=== PATIENT | male | born 1950 | race Caucasian/White ===

== ENCOUNTER 2020-08-14 14:56 | Outpatient (CLI) | payer MEDICARE, OTHER | END 2020-08-14 14:57 | disposition home or self-care (01) | LOC: CSHRAD 14:56 | PROVIDERS: ATTEND Internal Medicine Cardiovascular Disease | DX: Z79.899 Other long term (current) drug therapy (principal); Z13.83 Encounter for screening for respiratory disorder NEC; J90 Pleural effusion, not elsewhere classified | CPT/HCPCS: 71046 ==

== ENCOUNTER 2020-10-24 15:26 | Emergency (ER) | payer MEDICARE, OTHER ==
[2020-10-24] MEDS ORDERED: predniSONE 20 MG TAB ONE ×2 (17:35→17:40)
== END 2020-10-24 17:51 | disposition home or self-care (01) ==
LOC: CSHERS 15:26
DX: J18.9 Pneumonia, unspecified organism (principal); I25.2 Old myocardial infarction; E11.9 Type 2 diabetes mellitus without complications; E78.5 Hyperlipidemia, unspecified; E78.00 Pure hypercholesterolemia, unspecified; I10 Essential (primary) hypertension; Z79.4 Long term (current) use of insulin; Z79.899 Other long term (current) drug therapy
CPT/HCPCS: 71046; J7512

== ENCOUNTER 2020-10-31 19:14 | Emergency (ER) | payer MEDICARE, OTHER ==
[2020-10-31] MEDS ORDERED: Famotidine/PF 20 mg/2ml Vial ONE (19:50)
== END 2020-10-31 21:35 | disposition home or self-care (01) ==
LOC: CSHERS 19:14
DX: T78.1XXA Other adverse food reactions, not elsewhere classified, initial encounter (principal); L50.0 Allergic urticaria; I25.2 Old myocardial infarction; E78.5 Hyperlipidemia, unspecified; E78.00 Pure hypercholesterolemia, unspecified; E11.9 Type 2 diabetes mellitus without complications; I10 Essential (primary) hypertension; Z79.4 Long term (current) use of insulin; Z79.82 Long term (current) use of aspirin; Z79.899 Other long term (current) drug therapy
CPT/HCPCS: 96374; S0028

== ENCOUNTER 2021-05-02 23:03 | Inpatient (IN) | payer MEDICARE, OTHER ==
[2021-05-02 23:40] LABS: #Basophils 0.1 10x3/uL (0.0-0.2); #Eosinphils 0.2 10x3/uL (0.0-0.5); #Monocytes 0.6 10x3/uL (0.0-1.1); %Basophils 0.6 % (0.0-2.0); %Eosinophils 1.6 % (0.0-6.0); %Lymphocytes 16.4 % (18.0-47.0); %Monocytes 6.3 % (0.0-10.0); %Neutrophils 74.4 % (40.0-75.0); Hemoglobin 10.6 g/dL (13.5-17.5); Mean Corpuscular Volume 87.6 fl (81.2-95.1); Platelet Count 187 10x3/uL (150-450); RBC Distribution Width 15.5 % (11.5-14.5); Red Blood Cell (RBC) Count 3.78 10x6/uL (4.32-5.72); White Blood Cell (WBC) Count 9.4 10x3/uL (3.5-10.5)
[2021-05-02 23:54] LABS: ALT (SGPT) 32 U/L (8-55); AST (SGOT) 20 U/L (5-34); Albumin 3.7 g/dL (3.4-4.8); Alkaline Phosphatase 94 U/L (40-110); Anion Gap 12 mmol/L (10-20); BUN (Urea Nitrogen) 21 mg/dL (8.4-25.7); Bilirubin, Total 0.3 mg/dL (0.2-1.2); Calc. Creatinine Clearance 0 mL/min (70-130); Calcium 9.1 mg/dL (7.8-10.44); Carbon Dioxide 28 mmol/L (23-31); Chloride 101 mmol/L (98-107); Globulin 2.7 g/dL (2.4-3.5); Glucose 138 mg/dL (83-110); Lipase 48 U/L (8-78); Magnesium 2.3 mg/dL (1.6-2.6); Potassium 4.6 mmol/L (3.5-5.1); Protein, Total 6.4 g/dL (5.8-8.1); Sodium 136 mmol/L (136-145)
[2021-05-03] MEDS ORDERED: HumaLOG 300 UNITS/3 ML VIAL SC PRN (00:50)
[2021-05-03] MEDS ORDERED: Calcium Carbonate 500 MG ChewTAB PO PRN (00:50)
[2021-05-03] MEDS ORDERED: Dextrose 5% in Water 1,000 ML IV PRN (00:50)
[2021-05-03] MEDS ORDERED: Dextrose 50% Abboject 50 ML SYRINGE SLOW IVP PRN (00:50)
[2021-05-03] MEDS ORDERED: Senokot S 8.6-50 MG TAB PO PRN (00:50)
[2021-05-03] MEDS ORDERED: HYDROcodone/Acetaminophen 5/325 mg Tablet PO PRN (00:50)
[2021-05-03 01:29] LABS: SARS-CoV-2 NAA Rapid Test Not Detected (NotDetected)
[2021-05-03] MEDS ORDERED: Nitroglycerin 2% Ointment 1 INCH/1 GM Packet TOP SCH (02:30)
[2021-05-03] MEDS ORDERED: Nitroglycerin 2% Ointment 1 INCH/1 GM Packet ONE ×2 (03:24→07:09)
[2021-05-03 03:59] LABS: Cardiac Risk 4.2 (Less than 4.5)
[2021-05-03] MEDS ORDERED: Carvedilol 25 MG TAB PO SCH (08:00)
[2021-05-03] MEDS ORDERED: Potassium Chloride 20 MEQ TAB ONE (08:49)
[2021-05-03] MEDS ORDERED: metFORMIN 500 MG TAB ONE ×2 (08:49→18:15)
[2021-05-03 08:50] LABS: Hemoglobin A1c 5.9 % (4.0-6.0)
[2021-05-03] MEDS ORDERED: Carvedilol 12.5 MG TAB ONE (08:50)
[2021-05-03] MEDS: metFORMIN 500 MG TAB PO SCH (08:54)
[2021-05-03] MEDS: Potassium Chloride 10 MEQ TAB PO SCH (08:54)
[2021-05-03] MEDS ORDERED: Enoxaparin Sodium 30 MG/0.3 ML SYRINGE ONE (09:34)
[2021-05-03] MEDS ORDERED: Furosemide 40 MG TAB ONE (09:34)
[2021-05-03] MEDS ORDERED: Enoxaparin Sodium 100 MG/ML SYRINGE ONE (09:35)
[2021-05-03] MEDS: Amiodarone 200 MG TAB PO SCH (09:44)
[2021-05-03] MEDS: Enoxaparin Sodium 100 MG/ML SYRINGE SC SCH ×2 (09:44→22:42)
[2021-05-03] MEDS: Spironolactone 25 MG TAB PO SCH (09:44)
[2021-05-03] MEDS: Ferrous Sulfate 325 MG TAB PO SCH (09:44)
[2021-05-03] MEDS: Enoxaparin Sodium 30 MG/0.3 ML SYRINGE SC SCH ×2 (09:45→22:39)
[2021-05-03] MEDS: Furosemide 40 MG TAB PO SCH (09:45)
[2021-05-03] MEDS: Lisinopril 20 MG TAB PO SCH (09:45)
[2021-05-03] MEDS: Lantus 1000 UNITS/10 ML VIAL SC SCH (09:55)
[2021-05-03] MEDS ORDERED: hydrALAZINE 20 MG/ML VIAL ONE (12:20)
[2021-05-03] MEDS: hydrALAZINE 20 MG/ML VIAL SLOW IVP PRN (12:30)
[2021-05-03] MEDS ORDERED: Carvedilol 25 MG TAB ONE (17:52)
[2021-05-03] MEDS: Carvedilol 25 MG TAB PO SCH (17:54)
[2021-05-03] MEDS: Acetaminophen 325 MG TAB PO PRN ×2 (17:55→22:44)
[2021-05-03] MEDS ORDERED: Acetaminophen 325 MG TAB ONE (17:59)
[2021-05-03] MEDS: Latanoprost 0.005% Ophth Soln 2.5 ml Bottle EA EYE SCH (22:38)
[2021-05-03] MEDS: Atorvastatin Calcium 40 MG TAB PO SCH (22:40)
[2021-05-03] MEDS: Aspirin 81 mg Enteric Coated Tablet PO SCH (22:40)
[2021-05-04] MEDS: Timolol 0.5% Ophth Soln 5 ml Bottle EA EYE SCH ×2 (00:24→09:34)
[2021-05-04] MEDS: Ferrous Sulfate 325 MG TAB PO SCH ×3 (00:24→17:04)
[2021-05-04] MEDS: metFORMIN 500 MG TAB PO SCH ×3 (00:24→17:04)
[2021-05-04 02:29] VITALS: BMI 39.0
[2021-05-04] MEDS: Carvedilol 25 MG TAB PO SCH ×2 (09:30→17:03)
[2021-05-04] MEDS: Spironolactone 25 MG TAB PO SCH (09:31)
[2021-05-04] MEDS: Potassium Chloride 10 MEQ TAB PO SCH (09:31)
[2021-05-04] MEDS: Amiodarone 200 MG TAB PO SCH (09:31)
[2021-05-04] MEDS: Enoxaparin Sodium 100 MG/ML SYRINGE SC SCH ×2 (09:32→21:47)
[2021-05-04] MEDS: Enoxaparin Sodium 30 MG/0.3 ML SYRINGE SC SCH ×2 (09:33→21:37)
[2021-05-04] MEDS: Furosemide 40 MG TAB PO SCH (09:33)
[2021-05-04] MEDS: Lisinopril 20 MG TAB PO SCH (09:33)
[2021-05-04] MEDS: Lantus 1000 UNITS/10 ML VIAL SC SCH (09:35)
[2021-05-04] MEDS ORDERED: Communication Order-Pharmacy FS SCH (17:30)
[2021-05-04] MEDS: Aspirin 81 mg Enteric Coated Tablet PO SCH (21:37)
[2021-05-04] MEDS: Atorvastatin Calcium 40 MG TAB PO SCH (21:37)
[2021-05-04] MEDS: Acetaminophen 325 MG TAB PO PRN (21:44)
[2021-05-04] MEDS: Latanoprost 0.005% Ophth Soln 2.5 ml Bottle EA EYE SCH (21:47)
[2021-05-05] MEDS: Nitroglycerin 0.4 MG TAB (25 Tab Bottle) SL PRN ×2 (03:43→03:50)
[2021-05-05] MEDS ORDERED: Nitroglycerin 2% Ointment 1 INCH/1 GM Packet TOP SCH (05:15)
[2021-05-05] MEDS: Sodium Chloride 0.9% 1,000 ML IV SCH ×4 (06:48→21:38)
[2021-05-05] MEDS: Acetaminophen 325 MG TAB PO PRN ×2 (06:55→15:56)
[2021-05-05] MEDS: hydrALAZINE 20 MG/ML VIAL SLOW IVP PRN (06:56)
[2021-05-05] MEDS: Amiodarone 200 MG TAB PO SCH (10:13)
[2021-05-05] MEDS: Furosemide 40 MG TAB PO SCH (10:13)
[2021-05-05] MEDS: Ferrous Sulfate 325 MG TAB PO SCH ×2 (10:14→17:29)
[2021-05-05] MEDS: Potassium Chloride 10 MEQ TAB PO SCH (10:14)
[2021-05-05] MEDS: Lisinopril 20 MG TAB PO SCH (10:14)
[2021-05-05] MEDS: Spironolactone 25 MG TAB PO SCH (10:14)
[2021-05-05] MEDS: Carvedilol 25 MG TAB PO SCH ×2 (10:14→17:29)
[2021-05-05] MEDS: Timolol 0.5% Ophth Soln 5 ml Bottle EA EYE SCH (10:15)
[2021-05-05] MEDS ORDERED: Nitroglycerin 50 MG/250 ML BOT 250 ML ONE (12:17)
[2021-05-05] MEDS ORDERED: Heparin 10,000 UNITS/ 10 ML VIAL ONE ×2 (12:17→14:08)
[2021-05-05] MEDS ORDERED: Sodium Chloride 0.9% 1,000 ML ONE (12:18)
[2021-05-05] MEDS ORDERED: Adenosine 6 MG/2 ML VIAL ONE (12:18)
[2021-05-05] MEDS ORDERED: Fentanyl 100 MCG/2 ML VIAL ONE (12:54)
[2021-05-05] MEDS ORDERED: Midazolam HCl 2 mg/2 ml Vial ONE ×2 (12:54→13:33)
[2021-05-05] MEDS ORDERED: TICAGRELOR 90 MG TABLET ONE (13:45)
[2021-05-05] MEDS: Latanoprost 0.005% Ophth Soln 2.5 ml Bottle EA EYE SCH (21:04)
[2021-05-05] MEDS: Atorvastatin Calcium 40 MG TAB PO SCH (21:37)
[2021-05-05] MEDS: TICAGRELOR 90 MG TABLET PO SCH (21:37)
[2021-05-06] MEDS: Sodium Chloride 0.9% 1,000 ML IV SCH ×2 (02:04→06:05)
[2021-05-06 07:43] LABS: #Eosinphils 0.2 10x3/uL (0.0-0.5); #Monocytes 0.6 10x3/uL (0.0-1.1); #Neutrophils 5.6 10x3/uL (1.5-8.4); %Basophils 0.4 % (0.0-2.0); %Eosinophils 2.2 % (0.0-6.0); %Lymphocytes 13.7 % (18.0-47.0); %Monocytes 7.4 % (0.0-10.0); %Neutrophils 75.8 % (40.0-75.0); Hemoglobin 9.4 g/dL (13.5-17.5); Mean Corpuscular HGB CONC 31.5 g/dL (32.0-36.0); Mean Corpuscular Hemoglobin 27.7 pg (27.0-33.0); Mean Corpuscular Volume 87.9 fl (81.2-95.1); Platelet Count 159 10x3/uL (150-450); RBC Distribution Width 15.9 % (11.5-14.5); Red Blood Cell (RBC) Count 3.39 10x6/uL (4.32-5.72); White Blood Cell (WBC) Count 7.4 10x3/uL (3.5-10.5)
[2021-05-06 07:48] LABS: ALT (SGPT) 35 U/L (8-55); AST (SGOT) 26 U/L (5-34); Albumin 3.2 g/dL (3.4-4.8); Alkaline Phosphatase 77 U/L (40-110); Anion Gap 12 mmol/L (10-20); BUN (Urea Nitrogen) 16 mg/dL (8.4-25.7); Bilirubin, Total 0.5 mg/dL (0.2-1.2); Calc. Creatinine Clearance 163 mL/min (70-130); Calcium 8.3 mg/dL (7.8-10.44); Carbon Dioxide 25 mmol/L (23-31); Chloride 107 mmol/L (98-107); Globulin 2.4 g/dL (2.4-3.5); Glucose 127 mg/dL (83-110); Potassium 3.7 mmol/L (3.5-5.1); Protein, Total 5.6 g/dL (5.8-8.1); Sodium 140 mmol/L (136-145)
[2021-05-06] MEDS ORDERED: Aspirin Chewable 81 MG TAB PO SCH (09:00)
[2021-05-06] MEDS ORDERED: Lantus 1000 UNITS/10 ML VIAL SC SCH (09:00)
[2021-05-06] MEDS: Timolol 0.5% Ophth Soln 5 ml Bottle EA EYE SCH (09:20)
[2021-05-06] MEDS: Furosemide 40 MG TAB PO SCH (09:31)
[2021-05-06] MEDS: Carvedilol 25 MG TAB PO SCH (09:32)
[2021-05-06] MEDS: Ferrous Sulfate 325 MG TAB PO SCH (09:32)
[2021-05-06] MEDS: Spironolactone 25 MG TAB PO SCH (09:32)
[2021-05-06] MEDS: TICAGRELOR 90 MG TABLET PO SCH (09:32)
[2021-05-06] MEDS: Lisinopril 20 MG TAB PO SCH (09:32)
[2021-05-06] MEDS: Amiodarone 200 MG TAB PO SCH (09:33)
[2021-05-06] MEDS: Potassium Chloride 10 MEQ TAB PO SCH (09:33)
[2021-05-06 13:12] VITALS: BP 117/56; TEMP 97.4
== END 2021-05-06 13:36 | disposition home or self-care (01) | DRG 247 ==
LOC: CSHERS 23:03 → INTOOBSV 05-03 01:13 → CSHERHOLD 05-03 01:13 → CSHTELE 05-03 01:14 → OBSVTOIN 05-05 12:21
PROVIDERS: ADMIT Student in an Organized Health Care Education/Training Program; ATTEND Internal Medicine
PROC: 027034Z Dilation of Coronary Artery, One Artery with Drug-eluting Intraluminal Device, Percutaneous Approach (ICD-10-PCS; principal; 2021-05-05)
PROC: 06C Lower Veins, Extirpation (ICD-10-PCS; 2021-05-05)
PROC: 02703ZZ Dilation of Coronary Artery, One Artery, Percutaneous Approach (ICD-10-PCS; 2021-05-05)
PROC: 4A023N7 Measurement of Cardiac Sampling and Pressure, Left Heart, Percutaneous Approach (ICD-10-PCS; 2021-05-05)
PROC: B2111ZZ Fluoroscopy of Multiple Coronary Arteries using Low Osmolar Contrast (ICD-10-PCS; 2021-05-05)
PROC: B2151ZZ Fluoroscopy of Left Heart using Low Osmolar Contrast (ICD-10-PCS; 2021-05-05)
PROC: B3101ZZ Fluoroscopy of Thoracic Aorta using Low Osmolar Contrast (ICD-10-PCS; 2021-05-05)
PROC: B2121ZZ Fluoroscopy of Single Coronary Artery Bypass Graft using Low Osmolar Contrast (ICD-10-PCS; 2021-05-05)
PROC: B2181ZZ Fluoroscopy of Left Internal Mammary Bypass Graft using Low Osmolar Contrast (ICD-10-PCS; 2021-05-05)
PROC: B240ZZ3 Ultrasonography of Single Coronary Artery, Intravascular (ICD-10-PCS; 2021-05-05)
DX: T82.855A Stenosis of coronary artery stent, initial encounter (principal); I25.110 Atherosclerotic heart disease of native coronary artery with unstable angina pectoris; I13.0 Hypertensive heart and chronic kidney disease with heart failure and stage 1 through stage 4 chronic kidney disease, or unspecified chronic kidney disease; I50.22 Chronic systolic (congestive) heart failure; Z20.822 Contact with and (suspected) exposure to COVID-19; I25.5 Ischemic cardiomyopathy; N18.2 Chronic kidney disease, stage 2 (mild); E11.22 Type 2 diabetes mellitus with diabetic chronic kidney disease; I25.10 Atherosclerotic heart disease of native coronary artery without angina pectoris; E66.01 Morbid (severe) obesity due to excess calories; I48.0 Paroxysmal atrial fibrillation; N40.0 Benign prostatic hyperplasia without lower urinary tract symptoms; D63.1 Anemia in chronic kidney disease; E78.2 Mixed hyperlipidemia; T82.867A Thrombosis due to cardiac prosthetic devices, implants and grafts, initial encounter; E11.65 Type 2 diabetes mellitus with hyperglycemia; H40.9 Unspecified glaucoma; G47.33 Obstructive sleep apnea (adult) (pediatric); Y83.1 Surgical operation with implant of artificial internal device as the cause of abnormal reaction of the patient, or of later complication, without mention of misadventure at the time of the procedure; Z95.1 Presence of aortocoronary bypass graft; Z95.5 Presence of coronary angioplasty implant and graft; Z95.810 Presence of automatic (implantable) cardiac defibrillator; Z91.013 Allergy to seafood; Z88.1 Allergy status to other antibiotic agents; Z79.82 Long term (current) use of aspirin; Z79.01 Long term (current) use of anticoagulants; Z79.899 Other long term (current) drug therapy; Z79.4 Long term (current) use of insulin; Z98.890 Other specified postprocedural states; Z85.820 Personal history of malignant melanoma of skin; Z68.39 Body mass index [BMI] 39.0-39.9, adult
CPT/HCPCS: 36415; 36416; 71045; 80053; 80061; 83036; 83690; 83735; 83880; 84443; 84484; 85025; 85347; 92937; 92978; 93005; 93010; 93459; 94760; 99152; 99153; C1753; C1760; C1887; C9604; J0153; J0360; J1644; J1650; J1815; J2250; J3010; J7050; U0002

== ENCOUNTER 2021-05-08 13:48 | Emergency (ER) | payer OTHER, MEDICARE ==
[2021-05-08] MEDS ORDERED: Boostrix 0.5 ML (Tdap) VIAL ONE (14:19)
== END 2021-05-08 14:24 | disposition home or self-care (01) ==
LOC: CSHERS 13:48
DX: S51.812A Laceration without foreign body of left forearm, initial encounter (principal); I10 Essential (primary) hypertension; E11.9 Type 2 diabetes mellitus without complications; E78.5 Hyperlipidemia, unspecified; I25.2 Old myocardial infarction; W26.8XXA Contact with other sharp object(s), not elsewhere classified, initial encounter; Y92.239 Unspecified place in hospital as the place of occurrence of the external cause; Z23 Encounter for immunization; Z79.01 Long term (current) use of anticoagulants; Z79.82 Long term (current) use of aspirin; Z79.84 Long term (current) use of oral hypoglycemic drugs; Z79.899 Other long term (current) drug therapy; Z95.5 Presence of coronary angioplasty implant and graft
CPT/HCPCS: 90471; 90715

== ENCOUNTER 2022-05-30 17:02 | Inpatient (IN) | payer MEDICARE ==
[2022-05-30] MEDS ORDERED: Nitroglycerin 2% Ointment 1 INCH/1 GM Packet ONE (17:26)
[2022-05-30 17:49] LABS: #Eosinphils 0.2 10x3/uL (0.0-0.5); #Monocytes 0.6 10x3/uL (0.0-1.1); #Neutrophils 6.4 10x3/uL (1.5-8.4); %Basophils 0.5 % (0.0-2.0); %Eosinophils 2.1 % (0.0-6.0); %Lymphocytes 15.9 % (18.0-47.0); %Neutrophils 73.8 % (40.0-75.0); Hemoglobin 11.7 g/dL (13.5-17.5); Mean Corpuscular HGB CONC 33.4 g/dL (32.0-36.0); Mean Corpuscular Hemoglobin 29.7 pg (27.0-33.0); Mean Corpuscular Volume 88.8 fl (81.2-95.1); Mean Platelet Volume 12.4 fl (7.4-10.4); Platelet Count 179 10x3/uL (150-450); RBC Distribution Width 14.1 % (11.5-14.5); Red Blood Cell (RBC) Count 3.94 10x6/uL (4.32-5.72); White Blood Cell (WBC) Count 8.6 10x3/uL (3.5-10.5)
[2022-05-30 18:04] LABS: ALT (SGPT) 56 U/L (8-55); AST (SGOT) 28 U/L (5-34); Albumin 3.9 g/dL (3.4-4.8); Alkaline Phosphatase 87 U/L (40-110); Anion Gap 14 mmol/L (10-20); BUN (Urea Nitrogen) 31 mg/dL (8.4-25.7); Bilirubin, Total 0.4 mg/dL (0.2-1.2); Calc. Creatinine Clearance 0 mL/min (70-130); Calcium 9.1 mg/dL (7.8-10.44); Carbon Dioxide 26 mmol/L (23-31); Chloride 97 mmol/L (98-107); Estimated GFR 55; Globulin 2.4 g/dL (2.4-3.5); Glucose 201 mg/dL (83-110); Protein, Total 6.3 g/dL (5.8-8.1); Sodium 132 mmol/L (136-145)
[2022-05-30] MEDS ORDERED: Ondansetron PF 4 MG/2 ML Vial IVP PRN (18:33)
[2022-05-30] MEDS ORDERED: Ondansetron ODT 4 MG TAB PO PRN (18:33)
[2022-05-30] MEDS ORDERED: Dextrose 5% in Water 1,000 ML IV PRN (18:40)
[2022-05-30] MEDS ORDERED: Dextrose 50% Abboject 50 ML SYRINGE SLOW IVP PRN (18:40)
[2022-05-30] MEDS ORDERED: HumaLOG 300 UNITS/3 ML VIAL SC PRN (18:40)
[2022-05-30] MEDS ORDERED: Enoxaparin Sodium 40 MG/0.4 ML SYRINGE SC SCH (18:45)
[2022-05-30 18:55] LABS: Magnesium 2.2 mg/dL (1.6-2.6)
[2022-05-30 22:39] VITALS: BMI 42.6
[2022-05-31 00:18] LABS: Troponin I 0.015 ng/mL (< 0.028)
[2022-05-31] MEDS: Acetaminophen 325 MG TAB PO PRN (00:58)
[2022-05-31 01:34] LABS: SARS-CoV-2 NAA Rapid Test Not Detected (NotDetected)
[2022-05-31 04:18] LABS: #Eosinphils 0.2 10x3/uL (0.0-0.5); #Monocytes 0.6 10x3/uL (0.0-1.1); #Neutrophils 5.1 10x3/uL (1.5-8.4); %Basophils 0.4 % (0.0-2.0); %Eosinophils 2.7 % (0.0-6.0); %Lymphocytes 23.4 % (18.0-47.0); %Monocytes 7.5 % (0.0-10.0); %Neutrophils 65.4 % (40.0-75.0); Hemoglobin 10.4 g/dL (13.5-17.5); Mean Corpuscular HGB CONC 33.3 g/dL (32.0-36.0); Mean Corpuscular Hemoglobin 29.6 pg (27.0-33.0); Mean Corpuscular Volume 88.9 fl (81.2-95.1); Mean Platelet Volume 12.1 fl (7.4-10.4); Platelet Count 168 10x3/uL (150-450); Red Blood Cell (RBC) Count 3.51 10x6/uL (4.32-5.72); White Blood Cell (WBC) Count 7.9 10x3/uL (3.5-10.5)
[2022-05-31 04:40] LABS: Anion Gap 14 mmol/L (10-20); BUN (Urea Nitrogen) 31 mg/dL (8.4-25.7); Calc. Creatinine Clearance 117 mL/min (70-130); Calcium 8.8 mg/dL (7.8-10.44); Carbon Dioxide 24 mmol/L (23-31); Chloride 103 mmol/L (98-107); Estimated GFR 63; Glucose 202 mg/dL (83-110); Potassium 4.2 mmol/L (3.5-5.1); Sodium 137 mmol/L (136-145)
[2022-05-31] MEDS: Furosemide 40 MG TAB PO SCH (09:02)
[2022-05-31] MEDS: Cyanocobalamin (Vitamin B-12) 1,000 MCG TAB PO SCH (09:02)
[2022-05-31] MEDS: Lisinopril 5 MG TAB PO SCH (09:02)
[2022-05-31] MEDS: Spironolactone 25 MG TAB PO SCH (09:02)
[2022-05-31] MEDS: Amiodarone 200 MG TAB PO SCH (09:02)
[2022-05-31] MEDS: metFORMIN 500 MG TAB PO SCH ×2 (09:02→17:03)
[2022-05-31] MEDS: Magnesium Oxide 250 MG TAB PO SCH (09:02)
[2022-05-31] MEDS: Ferrous Sulfate 325 MG TAB PO SCH ×2 (09:02→17:02)
[2022-05-31] MEDS: Potassium Chloride 20 MEQ TAB PO SCH (09:02)
[2022-05-31] MEDS: Tamsulosin HCl 0.4 MG CAP PO SCH (09:02)
[2022-05-31] MEDS: Lantus 1000 UNITS/10 ML VIAL SC SCH ×2 (09:03→20:48)
[2022-05-31] MEDS: Timolol 0.5% Ophth Soln 5 ml Bottle EA EYE SCH (09:03)
[2022-05-31] MEDS: Carvedilol 6.25 MG TAB PO SCH ×2 (09:03→17:03)
[2022-05-31 17:26] LABS: Hemoglobin A1c 7.4 % (4.0-6.0)
[2022-05-31 18:08] LABS: Troponin I 0.012 ng/mL (< 0.028)
[2022-05-31] MEDS: Atorvastatin Calcium 40 MG TAB PO SCH (20:47)
[2022-05-31] MEDS: Aspirin 81 mg Enteric Coated Tablet PO SCH (20:48)
[2022-05-31] MEDS: Enoxaparin Sodium 120 MG/0.8 ML SYRINGE SC SCH (20:48)
[2022-05-31] MEDS: Latanoprost 0.005% Ophth Soln 2.5 ml Bottle EA EYE SCH (20:49)
[2022-05-31] MEDS ORDERED: Furosemide 40 MG/4 ML VIAL SLOW IVP SCH (21:00)
[2022-06-01 06:08] LABS: #Basophils 0.1 10x3/uL (0.0-0.2); #Eosinphils 0.2 10x3/uL (0.0-0.5); #Monocytes 0.8 10x3/uL (0.0-1.1); #Neutrophils 7.5 10x3/uL (1.5-8.4); %Basophils 0.4 % (0.0-2.0); %Lymphocytes 22.7 % (18.0-47.0); %Monocytes 7.2 % (0.0-10.0); Hemoglobin 12.3 g/dL (13.5-17.5); Mean Corpuscular HGB CONC 33.8 g/dL (32.0-36.0); Mean Corpuscular Hemoglobin 30.1 pg (27.0-33.0); Mean Corpuscular Volume 89.2 fl (81.2-95.1); Mean Platelet Volume 12.9 fl (7.4-10.4); Platelet Count 201 10x3/uL (150-450); RBC Distribution Width 14.1 % (11.5-14.5); Red Blood Cell (RBC) Count 4.08 10x6/uL (4.32-5.72); White Blood Cell (WBC) Count 11.1 10x3/uL (3.5-10.5)
[2022-06-01 06:31] LABS: Anion Gap 17 mmol/L (10-20); BUN (Urea Nitrogen) 27 mg/dL (8.4-25.7); Calc. Creatinine Clearance 106 mL/min (70-130); Calcium 9.5 mg/dL (7.8-10.44); Carbon Dioxide 22 mmol/L (23-31); Chloride 102 mmol/L (98-107); Estimated GFR 56; Glucose 194 mg/dL (83-110); Potassium 4.3 mmol/L (3.5-5.1); Sodium 137 mmol/L (136-145)
[2022-06-01] MEDS: Furosemide 40 MG TAB PO SCH (08:47)
[2022-06-01] MEDS: Ferrous Sulfate 325 MG TAB PO SCH ×2 (08:47→16:32)
[2022-06-01] MEDS: Tamsulosin HCl 0.4 MG CAP PO SCH (08:47)
[2022-06-01] MEDS: Enoxaparin Sodium 120 MG/0.8 ML SYRINGE SC SCH ×2 (08:47→21:41)
[2022-06-01] MEDS: Amiodarone 200 MG TAB PO SCH (08:48)
[2022-06-01] MEDS: Carvedilol 6.25 MG TAB PO SCH ×2 (08:48→16:32)
[2022-06-01] MEDS: Lantus 1000 UNITS/10 ML VIAL SC SCH ×2 (08:48→21:38)
[2022-06-01] MEDS: Magnesium Oxide 250 MG TAB PO SCH (08:48)
[2022-06-01] MEDS: Cyanocobalamin (Vitamin B-12) 1,000 MCG TAB PO SCH (08:48)
[2022-06-01] MEDS: Spironolactone 25 MG TAB PO SCH (08:48)
[2022-06-01] MEDS: Potassium Chloride 20 MEQ TAB PO SCH (08:48)
[2022-06-01] MEDS: Lisinopril 5 MG TAB PO SCH (08:48)
[2022-06-01] MEDS: Timolol 0.5% Ophth Soln 5 ml Bottle EA EYE SCH (08:49)
[2022-06-01] MEDS: HumaLOG 300 UNITS/3 ML VIAL SC PRN ×2 (11:17→16:32)
[2022-06-01] MEDS ORDERED: Communication Order-Pharmacy FS SCH (19:45)
[2022-06-01] MEDS: Aspirin 81 mg Enteric Coated Tablet PO SCH (21:33)
[2022-06-01] MEDS: Atorvastatin Calcium 40 MG TAB PO SCH (21:33)
[2022-06-01] MEDS: Latanoprost 0.005% Ophth Soln 2.5 ml Bottle EA EYE SCH (21:41)
[2022-06-02 05:02] LABS: Anion Gap 15 mmol/L (10-20); BUN (Urea Nitrogen) 26 mg/dL (8.4-25.7); Calc. Creatinine Clearance 111 mL/min (70-130); Calcium 9.4 mg/dL (7.8-10.44); Carbon Dioxide 25 mmol/L (23-31); Chloride 101 mmol/L (98-107); Estimated GFR 59; Glucose 148 mg/dL (83-110); Potassium 4.2 mmol/L (3.5-5.1); Sodium 137 mmol/L (136-145)
[2022-06-02 05:09] LABS: #Eosinphils 0.2 10x3/uL (0.0-0.5); #Monocytes 0.7 10x3/uL (0.0-1.1); #Neutrophils 6.5 10x3/uL (1.5-8.4); %Basophils 0.3 % (0.0-2.0); %Eosinophils 2.2 % (0.0-6.0); %Lymphocytes 21.1 % (18.0-47.0); %Monocytes 7.6 % (0.0-10.0); %Neutrophils 68.3 % (40.0-75.0); Hemoglobin 11.5 g/dL (13.5-17.5); Mean Corpuscular HGB CONC 33.2 g/dL (32.0-36.0); Mean Corpuscular Hemoglobin 29.5 pg (27.0-33.0); Mean Corpuscular Volume 88.7 fl (81.2-95.1); Mean Platelet Volume 12.5 fl (7.4-10.4); Platelet Count 180 10x3/uL (150-450); RBC Distribution Width 14.1 % (11.5-14.5); White Blood Cell (WBC) Count 9.5 10x3/uL (3.5-10.5)
[2022-06-02] MEDS: Amiodarone 200 MG TAB PO SCH (06:19)
[2022-06-02] MEDS: Lisinopril 5 MG TAB PO SCH (06:19)
[2022-06-02] MEDS: Carvedilol 6.25 MG TAB PO SCH ×2 (06:20→15:48)
[2022-06-02] MEDS: Cyanocobalamin (Vitamin B-12) 1,000 MCG TAB PO SCH (06:21)
[2022-06-02] MEDS: Tamsulosin HCl 0.4 MG CAP PO SCH (06:21)
[2022-06-02] MEDS: Potassium Chloride 20 MEQ TAB PO SCH (06:21)
[2022-06-02] MEDS: Sodium Chloride 0.9% 1,000 ML IV SCH ×3 (06:21→17:29)
[2022-06-02] MEDS: Magnesium Oxide 250 MG TAB PO SCH (06:21)
[2022-06-02] MEDS: Ferrous Sulfate 325 MG TAB PO SCH ×2 (06:21→15:39)
[2022-06-02] MEDS: Furosemide 40 MG TAB PO SCH (09:11)
[2022-06-02] MEDS: Acetaminophen 325 MG TAB PO PRN ×2 (09:12→15:46)
[2022-06-02] MEDS: Spironolactone 25 MG TAB PO SCH (09:12)
[2022-06-02] MEDS ORDERED: Iopamidol 300 61% 100 ML VIAL FS ONE (09:14)
[2022-06-02] MEDS: Lantus 1000 UNITS/10 ML VIAL SC SCH ×2 (09:14→20:33)
[2022-06-02] MEDS ORDERED: Aspirin 325 MG TAB ONE (12:13)
[2022-06-02] MEDS ORDERED: Clopidogrel Bisulfate 75 MG TAB ONE (12:13)
[2022-06-02] MEDS ORDERED: Lidocaine 1% (PF) 30 ML VIAL ONE (12:14)
[2022-06-02] MEDS ORDERED: Nitroglycerin 50 MG/250 ML BOT 250 ML ONE (12:15)
[2022-06-02] MEDS ORDERED: Heparin 10,000 UNITS/ 10 ML VIAL ONE ×3 (12:15→14:14)
[2022-06-02] MEDS ORDERED: Adenosine 6 MG/2 ML VIAL ONE (12:15)
[2022-06-02] MEDS ORDERED: Fentanyl 100 MCG/2 ML VIAL ONE (13:03)
[2022-06-02] MEDS ORDERED: Midazolam HCl 2 mg/2 ml Vial ONE (13:04)
[2022-06-02] MEDS: Timolol 0.5% Ophth Soln 5 ml Bottle EA EYE SCH (13:18)
[2022-06-02] MEDS ORDERED: TICAGRELOR 90 MG TABLET ONE (13:50)
[2022-06-02] MEDS: TICAGRELOR 90 MG TABLET PO SCH (20:31)
[2022-06-02] MEDS: Aspirin 81 mg Enteric Coated Tablet PO SCH (20:31)
[2022-06-02] MEDS: Atorvastatin Calcium 40 MG TAB PO SCH (20:32)
[2022-06-02] MEDS: Latanoprost 0.005% Ophth Soln 2.5 ml Bottle EA EYE SCH (20:36)
[2022-06-03] MEDS: Sodium Chloride 0.9% 1,000 ML IV SCH (04:43)
[2022-06-03 06:01] LABS: #Eosinphils 0.2 10x3/uL (0.0-0.5); #Monocytes 0.6 10x3/uL (0.0-1.1); #Neutrophils 6.5 10x3/uL (1.5-8.4); %Basophils 0.3 % (0.0-2.0); %Lymphocytes 15.7 % (18.0-47.0); %Monocytes 6.6 % (0.0-10.0); %Neutrophils 74.8 % (40.0-75.0); Hemoglobin 11.1 g/dL (13.5-17.5); Mean Corpuscular HGB CONC 33.3 g/dL (32.0-36.0); Mean Corpuscular Hemoglobin 29.7 pg (27.0-33.0); Mean Platelet Volume 12.5 fl (7.4-10.4); Platelet Count 178 10x3/uL (150-450); RBC Distribution Width 14.2 % (11.5-14.5); Red Blood Cell (RBC) Count 3.74 10x6/uL (4.32-5.72); White Blood Cell (WBC) Count 8.7 10x3/uL (3.5-10.5)
[2022-06-03 06:11] LABS: ALT (SGPT) 54 U/L (8-55); AST (SGOT) 34 U/L (5-34); Albumin 3.7 g/dL (3.4-4.8); Alkaline Phosphatase 85 U/L (40-110); Anion Gap 15 mmol/L (10-20); BUN (Urea Nitrogen) 23 mg/dL (8.4-25.7); Bilirubin, Total 0.5 mg/dL (0.2-1.2); Calc. Creatinine Clearance 101 mL/min (70-130); Calcium 9.2 mg/dL (7.8-10.44); Carbon Dioxide 26 mmol/L (23-31); Chloride 98 mmol/L (98-107); Estimated GFR 53; Globulin 2.9 g/dL (2.4-3.5); Glucose 227 mg/dL (83-110); Potassium 4.5 mmol/L (3.5-5.1); Protein, Total 6.6 g/dL (5.8-8.1); Sodium 134 mmol/L (136-145)
[2022-06-03] MEDS: HumaLOG 300 UNITS/3 ML VIAL SC PRN (06:19)
[2022-06-03 07:21] VITALS: TEMP 98.1
[2022-06-03] MEDS: Carvedilol 6.25 MG TAB PO SCH (09:09)
[2022-06-03] MEDS: Furosemide 40 MG TAB PO SCH (09:10)
[2022-06-03] MEDS: Spironolactone 25 MG TAB PO SCH (09:10)
[2022-06-03] MEDS: Cyanocobalamin (Vitamin B-12) 1,000 MCG TAB PO SCH (09:11)
[2022-06-03] MEDS: Lisinopril 5 MG TAB PO SCH (09:11)
[2022-06-03] MEDS: Tamsulosin HCl 0.4 MG CAP PO SCH (09:11)
[2022-06-03] MEDS: Potassium Chloride 20 MEQ TAB PO SCH (09:11)
[2022-06-03] MEDS: Amiodarone 200 MG TAB PO SCH (09:11)
[2022-06-03] MEDS: TICAGRELOR 90 MG TABLET PO SCH (09:12)
[2022-06-03] MEDS: Ferrous Sulfate 325 MG TAB PO SCH (09:12)
[2022-06-03] MEDS: Magnesium Oxide 250 MG TAB PO SCH (09:12)
[2022-06-03] MEDS: Timolol 0.5% Ophth Soln 5 ml Bottle EA EYE SCH (10:24)
[2022-06-03] MEDS: Lantus 1000 UNITS/10 ML VIAL SC SCH (10:24)
[2022-06-03 10:35] VITALS: BP 139/69
== END 2022-06-03 10:20 | disposition home or self-care (01) | DRG 247 ==
LOC: CSHERS 17:02 → CSHTELE 18:00 → OBSVTOIN 06-02 07:53
PROVIDERS: ADMIT Family Medicine; ATTEND Internal Medicine
PROC: 5A09457 Assistance with Respiratory Ventilation, 24-96 Consecutive Hours, Continuous Positive Airway Pressure (ICD-10-PCS; principal; 2022-05-31)
PROC: 027034Z Dilation of Coronary Artery, One Artery with Drug-eluting Intraluminal Device, Percutaneous Approach (ICD-10-PCS; 2022-06-02)
PROC: B241ZZ3 Ultrasonography of Multiple Coronary Arteries, Intravascular (ICD-10-PCS; 2022-06-02)
PROC: 4A023N7 Measurement of Cardiac Sampling and Pressure, Left Heart, Percutaneous Approach (ICD-10-PCS; 2022-06-02)
PROC: B2111ZZ Fluoroscopy of Multiple Coronary Arteries using Low Osmolar Contrast (ICD-10-PCS; 2022-06-02)
PROC: B2131ZZ Fluoroscopy of Multiple Coronary Artery Bypass Grafts using Low Osmolar Contrast (ICD-10-PCS; 2022-06-02)
PROC: B2181ZZ Fluoroscopy of Left Internal Mammary Bypass Graft using Low Osmolar Contrast (ICD-10-PCS; 2022-06-02)
PROC: B3101ZZ Fluoroscopy of Thoracic Aorta using Low Osmolar Contrast (ICD-10-PCS; 2022-06-02)
PROC: B2151ZZ Fluoroscopy of Left Heart using Low Osmolar Contrast (ICD-10-PCS; 2022-06-02)
DX: I25.110 Atherosclerotic heart disease of native coronary artery with unstable angina pectoris (principal); I24.9 Acute ischemic heart disease, unspecified; Z68.42 Body mass index [BMI] 45.0-49.9, adult; I50.22 Chronic systolic (congestive) heart failure; I48.21 Permanent atrial fibrillation; I13.0 Hypertensive heart and chronic kidney disease with heart failure and stage 1 through stage 4 chronic kidney disease, or unspecified chronic kidney disease; E78.5 Hyperlipidemia, unspecified; I25.5 Ischemic cardiomyopathy; N18.30 Chronic kidney disease, stage 3 unspecified; E66.01 Morbid (severe) obesity due to excess calories; E11.22 Type 2 diabetes mellitus with diabetic chronic kidney disease; G47.33 Obstructive sleep apnea (adult) (pediatric); I48.0 Paroxysmal atrial fibrillation; Z79.4 Long term (current) use of insulin; Z95.1 Presence of aortocoronary bypass graft; Z95.5 Presence of coronary angioplasty implant and graft; Z98.890 Other specified postprocedural states; Z88.8 Allergy status to other drugs, medicaments and biological substances; Z91.013 Allergy to seafood; Z79.82 Long term (current) use of aspirin; Z79.899 Other long term (current) drug therapy; Z79.84 Long term (current) use of oral hypoglycemic drugs; Z95.810 Presence of automatic (implantable) cardiac defibrillator; Z82.49 Family history of ischemic heart disease and other diseases of the circulatory system; Z20.822 Contact with and (suspected) exposure to COVID-19
CPT/HCPCS: 36415; 36416; 71045; 80048; 80053; 83036; 83735; 83880; 84443; 84484; 85025; 85347; 92928; 92978; 92979; 93005; 93010; 93306; 93459; 94640; 94660; 94760; 96372; 96374; 99152; 99153; C1725; C1753; C1760; C1769; C1874; C1887; C9600; G0378; J0153; J1644; J1650; J1815; J1940; J2001; J2250; J3010; J7050; J7620; Q9967; U0002

== ENCOUNTER 2022-08-15 10:17 | Emergency (ER) | payer MEDICARE ==
[2022-08-15 10:50] LABS: #Basophils 0.1 10x3/uL (0.0-0.2); #Eosinphils 0.1 10x3/uL (0.0-0.5); #Monocytes 0.6 10x3/uL (0.0-1.1); #Neutrophils 7.5 10x3/uL (1.5-8.4); %Basophils 0.5 % (0.0-2.0); %Eosinophils 1.3 % (0.0-6.0); %Monocytes 6.1 % (0.0-10.0); %Neutrophils 77.4 % (40.0-75.0); Hemoglobin 10.6 g/dL (13.5-17.5); Mean Corpuscular HGB CONC 31.5 g/dL (32.0-36.0); Mean Corpuscular Hemoglobin 28.7 pg (27.0-33.0); Mean Corpuscular Volume 91.3 fl (81.2-95.1); Mean Platelet Volume 12.5 fl (7.4-10.4); Platelet Count 204 10x3/uL (150-450); RBC Distribution Width 14.3 % (11.5-14.5); Red Blood Cell (RBC) Count 3.69 10x6/uL (4.32-5.72); White Blood Cell (WBC) Count 9.7 10x3/uL (3.5-10.5)
[2022-08-15 11:08] LABS: ALT (SGPT) 50 U/L (8-55); AST (SGOT) 25 U/L (5-34); Albumin 3.8 g/dL (3.4-4.8); Alkaline Phosphatase 83 U/L (40-110); Anion Gap 19 mmol/L (10-20); BUN (Urea Nitrogen) 36 mg/dL (8.4-25.7); Bilirubin, Total 0.3 mg/dL (0.2-1.2); Calc. Creatinine Clearance 0 mL/min (70-130); Calcium 9.3 mg/dL (7.8-10.44); Carbon Dioxide 20 mmol/L (23-31); Chloride 101 mmol/L (98-107); Estimated GFR 51; Globulin 2.4 g/dL (2.4-3.5); Glucose 266 mg/dL (83-110); Magnesium 2.1 mg/dL (1.6-2.6); Potassium 5.1 mmol/L (3.5-5.1); Protein, Total 6.2 g/dL (5.8-8.1); Sodium 135 mmol/L (136-145)
== END 2022-08-15 14:42 | disposition home or self-care (01) ==
LOC: CSHERS 10:17
DX: R07.9 Chest pain, unspecified (principal); E11.9 Type 2 diabetes mellitus without complications; E78.5 Hyperlipidemia, unspecified; I10 Essential (primary) hypertension
CPT/HCPCS: 36415; 71045; 80053; 83735; 84484; 85025; 85379; 93005

== ENCOUNTER 2022-10-20 15:18 | Outpatient (CLI) | payer MEDICARE | END 2022-10-20 15:19 | disposition home or self-care (01) | LOC: CSHCT 15:18 | DX: R93.0 Abnormal findings on diagnostic imaging of skull and head, not elsewhere classified (principal); G93.9 Disorder of brain, unspecified | CPT/HCPCS: 70450 ==

== ENCOUNTER 2023-03-30 14:55 | Inpatient (IN) | payer MEDICARE ==
[~2023-03-30 14:55] MED LIST: Iopamidol 300 61% 100 ML VIAL FS ONE
[2023-03-30 16:24] LABS: Bilirubin Neg (Negative); Blood, Urine Negative (Negative); Clarity Clear (Clear); Glucose, Urine (Dipstick) >=1000 mg/dL (Negative); Ketone, Urine Negative (Negative); Leukocyte 25 (Negative); Nitrite Negative (Negative); Protein, Urine (Dipstick) Negative (Neg-Trace); Specific Gravity, Urine 1.005 (1.005-1.030); Urobilinogen Normal mg/dL (Less than 2)
[2023-03-30 16:33] LABS: Bacteria/HPF 1+ HPF (None Seen); CAUTI Indications for Culture Fever or rigors; RBC/HPF 0-3 HPF (0-3); Squamous Epithelial 0-3 HPF (0-3); WBC/HPF 0-3 HPF (0-3); Yeast-Budding Rare HPF (None Seen)
[2023-03-30 16:36] LABS: Transitional Epithelial 0-3 HPF (None Seen)
[2023-03-30 16:40] LABS: Urine Culture Reflex No No
[2023-03-30 16:42] LABS: ALT (SGPT) 48 U/L (8-55); AST (SGOT) 34 U/L (5-34); Albumin 3.7 g/dL (3.4-4.8); Alkaline Phosphatase 79 U/L (40-110); Anion Gap 16 mmol/L (10-20); BUN (Urea Nitrogen) 26 mg/dL (8.4-25.7); Bilirubin, Total 0.7 mg/dL (0.2-1.2); Calc. Creatinine Clearance 0 mL/min (70-130); Calcium 9.8 mg/dL (7.8-10.44); Carbon Dioxide 23 mmol/L (23-31); Chloride 100 mmol/L (98-107); Estimated GFR 71; Globulin 3.7 g/dL (2.4-3.5); Glucose 199 mg/dL (83-110); Magnesium 2.2 mg/dL (1.6-2.6); Protein, Total 7.4 g/dL (5.8-8.1); Sodium 134 mmol/L (136-145)
[2023-03-30 16:43] LABS: #Monocytes 0.8 10x3/uL (0.0-1.1); #Neutrophils 14.9 10x3/uL (1.5-8.4); %Basophils 0.2 % (0.0-2.0); %Eosinophils 0.1 % (0.0-6.0); %Lymphocytes 3.1 % (18.0-47.0); Hematocrit 37.8 % (38.8-50.0); Mean Corpuscular HGB CONC 31.7 g/dL (32.0-36.0); Mean Corpuscular Hemoglobin 28.1 pg (27.0-33.0); Mean Corpuscular Volume 88.5 fl (81.2-95.1); Mean Platelet Volume 12.5 fl (7.4-10.4); Platelet Count 175 10x3/uL (150-450); RBC Distribution Width 16.2 % (11.5-14.5); Red Blood Cell (RBC) Count 4.27 10x6/uL (4.32-5.72); White Blood Cell (WBC) Count 16.3 10x3/uL (3.5-10.5)
[2023-03-30 17:06] LABS: SARS-CoV-2 NAA Rapid Test Not Detected (NotDetected)
[2023-03-30] MEDS ORDERED: Piperacillin/Tazobactam 3.375 GM VIAL ONE (18:35)
[2023-03-30] MEDS ORDERED: Vancomycin 1 GM VIAL ONE (18:35)
[2023-03-30] MEDS ORDERED: Acetaminophen 325 MG TAB ONE (21:17)
[2023-03-30 23:15] VITALS: BMI 38.2
[2023-03-31] MEDS ORDERED: Acetaminophen 650 MG Suppository PR PRN (03:13)
[2023-03-31] MEDS ORDERED: Ondansetron PF 4 MG/2 ML Vial IVP PRN (03:13)
[2023-03-31] MEDS ORDERED: Ondansetron ODT 4 MG TAB PO PRN (03:13)
[2023-03-31] MEDS: Acetaminophen 325 MG TAB PO PRN (03:33)
[2023-03-31 05:06] LABS: Hematocrit 32.2 % (38.8-50.0); Hemoglobin 10.3 g/dL (13.5-17.5); Mean Corpuscular Hemoglobin 28.1 pg (27.0-33.0); Mean Corpuscular Volume 87.7 fl (81.2-95.1); Mean Platelet Volume 12.4 fl (7.4-10.4); Platelet Count 149 10x3/uL (150-450); RBC Distribution Width 16.4 % (11.5-14.5); Red Blood Cell (RBC) Count 3.67 10x6/uL (4.32-5.72); White Blood Cell (WBC) Count 14.3 10x3/uL (3.5-10.5)
[2023-03-31 05:16] LABS: Anion Gap 13 mmol/L (10-20); BUN (Urea Nitrogen) 25 mg/dL (8.4-25.7); Calc. Creatinine Clearance 108 mL/min (70-130); Calcium 8.5 mg/dL (7.8-10.44); Carbon Dioxide 24 mmol/L (23-31); Chloride 98 mmol/L (98-107); Estimated GFR 66; Glucose 152 mg/dL (83-110); Potassium 4.4 mmol/L (3.5-5.1); Sodium 131 mmol/L (136-145)
[2023-03-31 05:42] LABS: MDiff Complete? YES
[2023-03-31] MEDS ORDERED: Piperacillin/Tazobactam 3.375 GM in Sodium Chloride 0.9% 100 ML IVPB SCH (06:00)
[2023-03-31] MEDS ORDERED: VANCOMYCIN 1.25 GM/250 ML BAG IVPB SCH (06:00)
[2023-03-31] MEDS ORDERED: Sodium Chloride 0.9% 1,000 ML IV SCH ×3 (06:00→07:00)
[2023-03-31] MEDS ORDERED: Carvedilol 25 MG TAB PO PRN (06:23)
[2023-03-31] MEDS: VANCOMYCIN 1.25 GM/250 ML BAG 1.25 GM in Premix 1 BAG IVPB SCH ×2 (06:26→17:12)
[2023-03-31 06:39] LABS: Band 3 % (5-11); Lymphocytes 5 % (21-51); Monocytes 1 % (0-10); Neutrophil 91 % (42-75)
[2023-03-31 06:45] LABS: Anisocytosis SLIGHT = 6-15 cells (100X) (0-5/hpf); Elliptocytes SLIGHT = 2-5 cells (100X) (0-1/hpf); Platelet Adequacy Comment Appears Adequate; Poikilocytosis SLIGHT = 6-15 cells (100X) (0-5/hpf)
[2023-03-31] MEDS ORDERED: FLU VACC QS2023(65UP)/MF59C/PF 60 MCG/0.5 ML SYRINGE IM ONE (08:00)
[2023-03-31] MEDS: Piperacillin/Tazobactam 3.375 GM in Sodium Chloride 0.9% 100 ML IVPB SCH ×2 (12:40→18:00)
[2023-03-31] MEDS: Atorvastatin Calcium 40 MG TAB PO SCH (21:51)
[2023-03-31] MEDS: Lantus 1000 UNITS/10 ML VIAL SC SCH (21:54)
[2023-04-01] MEDS: Piperacillin/Tazobactam 3.375 GM in Sodium Chloride 0.9% 100 ML IVPB SCH ×3 (01:51→17:45)
[2023-04-01] MEDS: VANCOMYCIN 1.25 GM/250 ML BAG 1.25 GM in Premix 1 BAG IVPB SCH ×2 (05:32→17:44)
[2023-04-01] MEDS: Acetaminophen 325 MG TAB PO PRN ×2 (05:34→20:06)
[2023-04-01 06:09] LABS: #Monocytes 0.7 10x3/uL (0.0-1.1); #Neutrophils 7.6 10x3/uL (1.5-8.4); %Basophils 0.2 % (0.0-2.0); %Eosinophils 0.4 % (0.0-6.0); %Lymphocytes 8.9 % (18.0-47.0); %Monocytes 7.2 % (0.0-10.0); %Neutrophils 82.8 % (40.0-75.0); Hematocrit 32.1 % (38.8-50.0); Hemoglobin 10.2 g/dL (13.5-17.5); Mean Corpuscular HGB CONC 31.8 g/dL (32.0-36.0); Mean Corpuscular Hemoglobin 28.3 pg (27.0-33.0); Mean Corpuscular Volume 88.9 fl (81.2-95.1); Mean Platelet Volume 12.4 fl (7.4-10.4); Platelet Count 148 10x3/uL (150-450); RBC Distribution Width 16.5 % (11.5-14.5); Red Blood Cell (RBC) Count 3.61 10x6/uL (4.32-5.72); White Blood Cell (WBC) Count 9.2 10x3/uL (3.5-10.5)
[2023-04-01 06:24] LABS: Anion Gap 12 mmol/L (10-20); BUN (Urea Nitrogen) 22 mg/dL (8.4-25.7); Calc. Creatinine Clearance 127 mL/min (70-130); Calcium 8.6 mg/dL (7.8-10.44); Carbon Dioxide 22 mmol/L (23-31); Chloride 103 mmol/L (98-107); Estimated GFR 80; Glucose 140 mg/dL (83-110); Potassium 4.4 mmol/L (3.5-5.1); Sodium 133 mmol/L (136-145); Vancomycin, Trough 17.3 ug/mL
[2023-04-01] MEDS ORDERED: FUROSEMIDE 80 MG PO SCH (09:00)
[2023-04-01] MEDS ORDERED: Spironolactone 25 MG TAB PO SCH (09:00)
[2023-04-01] MEDS: Tamsulosin HCl 0.4 MG CAP PO SCH (09:45)
[2023-04-01] MEDS: Carvedilol 6.25 MG TAB PO SCH (09:53)
[2023-04-01] MEDS: Timolol 0.5% Ophth Soln 5 ml Bottle EA EYE SCH (10:02)
[2023-04-01] MEDS: Empagliflozin 25 MG TAB PO SCH (10:15)
[2023-04-01] MEDS: Lantus 1000 UNITS/10 ML VIAL SC SCH ×2 (10:19→20:38)
[2023-04-01] MEDS: Apixaban 5 MG TAB PO SCH (20:07)
[2023-04-01] MEDS: Atorvastatin Calcium 40 MG TAB PO SCH (20:07)
[2023-04-02] MEDS: Piperacillin/Tazobactam 3.375 GM in Sodium Chloride 0.9% 100 ML IVPB SCH ×3 (03:04→18:05)
[2023-04-02 04:58] LABS: %Basophils 0.2 % (0.0-2.0); %Eosinophils 0.1 % (0.0-6.0); %Lymphocytes 8.8 % (18.0-47.0); %Monocytes 9.6 % (0.0-10.0); %Neutrophils 80.6 % (40.0-75.0); Hematocrit 32.9 % (38.8-50.0); Hemoglobin 10.5 g/dL (13.5-17.5); Mean Corpuscular HGB CONC 31.9 g/dL (32.0-36.0); Mean Corpuscular Hemoglobin 28.2 pg (27.0-33.0); Mean Corpuscular Volume 88.2 fl (81.2-95.1); Mean Platelet Volume 11.7 fl (7.4-10.4); Platelet Count 147 10x3/uL (150-450); RBC Distribution Width 16.3 % (11.5-14.5); Red Blood Cell (RBC) Count 3.73 10x6/uL (4.32-5.72)
[2023-04-02 05:05] LABS: Anion Gap 13 mmol/L (10-20); BUN (Urea Nitrogen) 20 mg/dL (8.4-25.7); Calc. Creatinine Clearance 121 mL/min (70-130); Calcium 8.7 mg/dL (7.8-10.44); Carbon Dioxide 23 mmol/L (23-31); Chloride 102 mmol/L (98-107); Estimated GFR 76; Glucose 136 mg/dL (83-110); Potassium 4.1 mmol/L (3.5-5.1); Sodium 134 mmol/L (136-145)
[2023-04-02] MEDS: VANCOMYCIN 1.25 GM/250 ML BAG 1.25 GM in Premix 1 BAG IVPB SCH ×2 (06:26→18:04)
[2023-04-02] MEDS: Empagliflozin 25 MG TAB PO SCH (09:07)
[2023-04-02] MEDS: Tamsulosin HCl 0.4 MG CAP PO SCH (09:07)
[2023-04-02] MEDS: Carvedilol 6.25 MG TAB PO SCH (09:07)
[2023-04-02] MEDS: Lantus 1000 UNITS/10 ML VIAL SC SCH ×2 (09:09→20:45)
[2023-04-02] MEDS: Timolol 0.5% Ophth Soln 5 ml Bottle EA EYE SCH (09:11)
[2023-04-02] MEDS: Apixaban 5 MG TAB PO SCH ×2 (09:18→20:37)
[2023-04-02] MEDS ORDERED: Polyethylene Glycol 3350 17 GM Packet PO PRN (10:03)
[2023-04-02] MEDS: Acetaminophen 325 MG TAB PO PRN (14:11)
[2023-04-02] MEDS: Senokot S 8.6-50 MG TAB PO PRN (14:13)
[2023-04-02 17:47] LABS: Vancomycin, Trough 18.2 ug/mL
[2023-04-02] MEDS: Atorvastatin Calcium 40 MG TAB PO SCH (20:36)
[2023-04-03] MEDS: Acetaminophen 325 MG TAB PO PRN ×2 (02:13→16:07)
[2023-04-03] MEDS: Piperacillin/Tazobactam 3.375 GM in Sodium Chloride 0.9% 100 ML IVPB SCH ×3 (02:14→18:11)
[2023-04-03 05:39] LABS: Anion Gap 12 mmol/L (10-20); BUN (Urea Nitrogen) 19 mg/dL (8.4-25.7); Calc. Creatinine Clearance 131 mL/min (70-130); Calcium 8.6 mg/dL (7.8-10.44); Carbon Dioxide 21 mmol/L (23-31); Chloride 103 mmol/L (98-107); Estimated GFR 83; Glucose 155 mg/dL (83-110); Potassium 3.4 mmol/L (3.5-5.1); Sodium 133 mmol/L (136-145)
[2023-04-03] MEDS: VANCOMYCIN 1.25 GM/250 ML BAG 1.25 GM in Premix 1 BAG IVPB SCH ×2 (05:40→18:12)
[2023-04-03 06:06] LABS: #Eosinphils 0.1 10x3/uL (0.0-0.5); #Monocytes 0.8 10x3/uL (0.0-1.1); #Neutrophils 6.4 10x3/uL (1.5-8.4); %Basophils 0.2 % (0.0-2.0); %Eosinophils 1.2 % (0.0-6.0); %Lymphocytes 12.1 % (18.0-47.0); %Monocytes 9.6 % (0.0-10.0); %Neutrophils 76.2 % (40.0-75.0); Hematocrit 28.6 % (38.8-50.0); Hemoglobin 9.2 g/dL (13.5-17.5); Mean Corpuscular HGB CONC 32.2 g/dL (32.0-36.0); Mean Corpuscular Hemoglobin 27.9 pg (27.0-33.0); Mean Corpuscular Volume 86.7 fl (81.2-95.1); Mean Platelet Volume 12.6 fl (7.4-10.4); Platelet Count 132 10x3/uL (150-450); RBC Distribution Width 16.4 % (11.5-14.5); White Blood Cell (WBC) Count 8.2 10x3/uL (3.5-10.5)
[2023-04-03 06:53] LABS: Large Platelets SLIGHT (None Seen); Platelet Adequacy Comment Appears Decreased
[2023-04-03] MEDS: Lantus 1000 UNITS/10 ML VIAL SC SCH ×2 (08:33→20:22)
[2023-04-03] MEDS: Apixaban 5 MG TAB PO SCH ×2 (08:34→20:18)
[2023-04-03] MEDS: Carvedilol 6.25 MG TAB PO SCH (08:34)
[2023-04-03] MEDS: Empagliflozin 25 MG TAB PO SCH (08:34)
[2023-04-03] MEDS: Tamsulosin HCl 0.4 MG CAP PO SCH (08:34)
[2023-04-03] MEDS: Timolol 0.5% Ophth Soln 5 ml Bottle EA EYE SCH (08:37)
[2023-04-03] MEDS ORDERED: Potassium Chloride 20 MEQ TAB PO SCH (12:00)
[2023-04-03] MEDS: Senokot S 8.6-50 MG TAB PO PRN (16:04)
[2023-04-03] MEDS: Atorvastatin Calcium 40 MG TAB PO SCH (20:18)
[2023-04-04] MEDS: Acetaminophen 325 MG TAB PO PRN (00:35)
[2023-04-04] MEDS: Piperacillin/Tazobactam 3.375 GM in Sodium Chloride 0.9% 100 ML IVPB SCH ×2 (01:50→09:30)
[2023-04-04 05:19] LABS: Anion Gap 13 mmol/L (10-20); BUN (Urea Nitrogen) 18 mg/dL (8.4-25.7); Calc. Creatinine Clearance 148 mL/min (70-130); Calcium 8.4 mg/dL (7.8-10.44); Carbon Dioxide 21 mmol/L (23-31); Chloride 105 mmol/L (98-107); Estimated GFR 92; Glucose 105 mg/dL (83-110); Potassium 3.7 mmol/L (3.5-5.1); Sodium 135 mmol/L (136-145)
[2023-04-04 05:27] LABS: #Eosinphils 0.3 10x3/uL (0.0-0.5); #Monocytes 0.6 10x3/uL (0.0-1.1); #Neutrophils 5.8 10x3/uL (1.5-8.4); %Basophils 0.4 % (0.0-2.0); %Eosinophils 3.2 % (0.0-6.0); %Lymphocytes 14.8 % (18.0-47.0); %Monocytes 7.9 % (0.0-10.0); %Neutrophils 73.2 % (40.0-75.0); Hematocrit 28.6 % (38.8-50.0); Hemoglobin 9.1 g/dL (13.5-17.5); Mean Corpuscular HGB CONC 31.8 g/dL (32.0-36.0); Mean Corpuscular Hemoglobin 27.8 pg (27.0-33.0); Mean Corpuscular Volume 87.5 fl (81.2-95.1); Mean Platelet Volume 12.1 fl (7.4-10.4); Platelet Count 199 10x3/uL (150-450); RBC Distribution Width 16.3 % (11.5-14.5); Red Blood Cell (RBC) Count 3.27 10x6/uL (4.32-5.72); White Blood Cell (WBC) Count 7.9 10x3/uL (3.5-10.5)
[2023-04-04] MEDS: VANCOMYCIN 1.25 GM/250 ML BAG 1.25 GM in Premix 1 BAG IVPB SCH (06:05)
[2023-04-04] MEDS: Timolol 0.5% Ophth Soln 5 ml Bottle EA EYE SCH (08:29)
[2023-04-04] MEDS: Empagliflozin 25 MG TAB PO SCH (08:30)
[2023-04-04] MEDS: Apixaban 5 MG TAB PO SCH (08:31)
[2023-04-04] MEDS: Carvedilol 6.25 MG TAB PO SCH (08:31)
[2023-04-04] MEDS: Tamsulosin HCl 0.4 MG CAP PO SCH (08:31)
[2023-04-04] MEDS: Lantus 1000 UNITS/10 ML VIAL SC SCH (08:32)
[2023-04-04 09:33] VITALS: TEMP 98.1
[2023-04-04 12:48] VITALS: BP 158/70
== END 2023-04-04 12:52 | disposition home or self-care (01) | DRG 872 ==
LOC: CSHERS 14:55 → CSHTELE 23:11
PROVIDERS: ADMIT Student in an Organized Health Care Education/Training Program; ATTEND Internal Medicine
PROC: 3E03329 Introduction of Other Anti-infective into Peripheral Vein, Percutaneous Approach (ICD-10-PCS; principal; 2023-03-30)
PROC: 5A09457 Assistance with Respiratory Ventilation, 24-96 Consecutive Hours, Continuous Positive Airway Pressure (ICD-10-PCS; 2023-04-01)
DX: A41.9 Sepsis, unspecified organism (principal); I50.22 Chronic systolic (congestive) heart failure; E87.20 Acidosis, unspecified; E87.1 Hypo-osmolality and hyponatremia; E11.40 Type 2 diabetes mellitus with diabetic neuropathy, unspecified; I48.91 Unspecified atrial fibrillation; I25.2 Old myocardial infarction; D64.9 Anemia, unspecified; I25.10 Atherosclerotic heart disease of native coronary artery without angina pectoris; K59.00 Constipation, unspecified; Z20.822 Contact with and (suspected) exposure to COVID-19; S81.802A Unspecified open wound, left lower leg, initial encounter; Z95.5 Presence of coronary angioplasty implant and graft; Z88.1 Allergy status to other antibiotic agents; Z88.8 Allergy status to other drugs, medicaments and biological substances; Z91.013 Allergy to seafood; Z79.4 Long term (current) use of insulin; Z79.899 Other long term (current) drug therapy; Z79.2 Long term (current) use of antibiotics
CPT/HCPCS: 36415; 36416; 71045; 80048; 80053; 80202; 81001; 83605; 83735; 85025; 87040; 93005; 93010; 94760; 94762; J1815; J2543; J3370; J3490; J7050; Q9967

== ENCOUNTER 2023-04-12 11:53 | Outpatient (CLI) | payer MEDICARE ==
[2023-04-12 14:36] LABS: Hematocrit 37.6 % (38.8-50.0); Hemoglobin 11.5 g/dL (13.5-17.5); Mean Corpuscular HGB CONC 30.6 g/dL (32.0-36.0); Mean Corpuscular Hemoglobin 27.2 pg (27.0-33.0); Mean Corpuscular Volume 88.9 fl (81.2-95.1); Mean Platelet Volume 11.5 fl (7.4-10.4); Platelet Count 275 10x3/uL (150-450); RBC Distribution Width 16.2 % (11.5-14.5); Red Blood Cell (RBC) Count 4.23 10x6/uL (4.32-5.72); White Blood Cell (WBC) Count 8.7 10x3/uL (3.5-10.5)
[2023-04-12 15:41] LABS: Anion Gap 17 mmol/L (10-20); BUN (Urea Nitrogen) 20 mg/dL (8.4-25.7); Calc. Creatinine Clearance 0 mL/min (70-130); Calcium 9.1 mg/dL (7.8-10.44); Carbon Dioxide 27 mmol/L (23-31); Chloride 98 mmol/L (98-107); Estimated GFR 86; Glucose 119 mg/dL (83-110); Potassium 4.6 mmol/L (3.5-5.1); Sodium 137 mmol/L (136-145)
== END 2023-04-12 11:54 | disposition home or self-care (01) ==
LOC: CSHLAB 11:53
PROVIDERS: ATTEND Podiatrist Foot & Ankle Surgery
DX: Z01.812 Encounter for preprocedural laboratory examination (principal); M77.42 Metatarsalgia, left foot; L84 Corns and callosities
CPT/HCPCS: 80048; 85027

== ENCOUNTER 2023-04-20 09:35 | Day surgery (SDC) | payer MEDICARE ==
[2023-04-12 12:33] VITALS: BMI 35.3
[2023-04-20] MEDS ORDERED: Lidocaine 1% (PF) 30 ML VIAL ONE (10:17)
[2023-04-20] MEDS ORDERED: CEFAZOLIN 2 GM VIAL ONE (11:26)
[2023-04-20] MEDS ORDERED: Bupivacaine PF 0.5% 30 ML VIAL ONE (12:18)
== END 2023-04-20 13:40 | disposition home or self-care (01) ==
LOC: CSHSDC 09:35
PROVIDERS: ATTEND Podiatrist Foot & Ankle Surgery
PROC: 0QTP0ZZ Resection of Left Metatarsal, Open Approach (ICD-10-PCS; principal; 2023-04-20)
DX: S93.125A Dislocation of metatarsophalangeal joint of left lesser toe(s), initial encounter (principal); E11.42 Type 2 diabetes mellitus with diabetic polyneuropathy; E11.621 Type 2 diabetes mellitus with foot ulcer; L97.529 Non-pressure chronic ulcer of other part of left foot with unspecified severity; E11.9 Type 2 diabetes mellitus without complications; I11.0 Hypertensive heart disease with heart failure; M19.90 Unspecified osteoarthritis, unspecified site; Z88.1 Allergy status to other antibiotic agents; Z95.5 Presence of coronary angioplasty implant and graft
CPT/HCPCS: 36416; J2001; S0020

== ENCOUNTER 2023-07-20 09:29 | Day surgery (SDC) | payer MEDICARE ==
[2023-07-18 10:20] VITALS: BMI 35.9
[2023-07-20] MEDS ORDERED: Bupivacaine PF 0.5% 30 ML VIAL ONE (10:31)
[2023-07-20] MEDS ORDERED: Lidocaine 2% 10 ML INJ ONE (10:34)
[2023-07-20] MEDS ORDERED: CEFAZOLIN 2 GM VIAL ONE (11:22)
[2023-07-20] MEDS ORDERED: Midazolam HCl 2 mg/2 ml Vial ONE ×2 (11:45→11:54)
== END 2023-07-20 14:00 | disposition home or self-care (01) ==
LOC: CSHSDC 09:29
PROVIDERS: ATTEND Podiatrist Foot & Ankle Surgery
PROC: B24BZZZ Ultrasonography of Heart with Aorta (ICD-10-PCS; principal; 2023-07-20)
PROC: 0SGP0JZ Fusion of Right Toe Phalangeal Joint with Synthetic Substitute, Open Approach (ICD-10-PCS; 2023-07-20)
DX: M20.41 Other hammer toe(s) (acquired), right foot (principal); E11.621 Type 2 diabetes mellitus with foot ulcer; L97.519 Non-pressure chronic ulcer of other part of right foot with unspecified severity; E78.5 Hyperlipidemia, unspecified; I10 Essential (primary) hypertension; I25.10 Atherosclerotic heart disease of native coronary artery without angina pectoris; Z88.8 Allergy status to other drugs, medicaments and biological substances; Z88.1 Allergy status to other antibiotic agents; Z91.013 Allergy to seafood; Z95.810 Presence of automatic (implantable) cardiac defibrillator; Z79.84 Long term (current) use of oral hypoglycemic drugs; Z79.899 Other long term (current) drug therapy; Z98.890 Other specified postprocedural states; Z95.5 Presence of coronary angioplasty implant and graft
CPT/HCPCS: 36416; C1713; J0665; J2250

== ENCOUNTER 2024-07-02 18:50 | Emergency (ER) | payer MEDICARE ==
[2024-07-02 21:07] LABS: #Basophils Less than 0.03 10x3/uL (0.0-0.2); #Eosinophils Less than 0.03 10x3/uL (0.0-0.5); #Monocytes 0.93 10x3/uL (0.0-1.1); #Neutrophils 10.02 10x3/uL (1.5-8.4); %Basophils 0.2 % (0.0-2.0); %Eosinophils 0.2 % (0.0-6.0); %Lymphocytes 4.5 % (18.0-47.0); %Monocytes 7.9 % (0.0-10.0); %Neutrophils 84.7 % (40.0-75.0); Hematocrit 31.1 % (38.8-50.0); Hemoglobin 9.9 g/dL (13.5-17.5); Mean Corpuscular HGB CONC 31.8 g/dL (32.0-36.0); Mean Corpuscular Hemoglobin 30.1 pg (27.0-33.0); Mean Corpuscular Volume 94.5 fL (81.2-95.1); Mean Platelet Volume 11.4 fL (7.4-10.4); Platelet Count 188 10x3/uL (150-450); RBC Distribution Width 15.8 % (11.5-14.5); Red Blood Cell (RBC) Count 3.29 10x6/uL (4.32-5.72); White Blood Cell (WBC) Count 11.82 10x3/uL (3.5-10.5)
[2024-07-02] MEDS ORDERED: Piperacillin/Tazobactam 3.375 GM VIAL ONE (21:13)
[2024-07-02 21:23] LABS: Anion Gap 17 mmol/L (10-20); BUN (Urea Nitrogen) 38 mg/dL (8.4-25.7); Calc. Creatinine Clearance 0 mL/min (70-130); Calcium 9.6 mg/dL (7.8-10.44); Carbon Dioxide 23 mmol/L (23-31); Chloride 96 mmol/L (98-107); Estimated GFR 57; Glucose 203 mg/dL (83-110); Potassium 4.8 mmol/L (3.5-5.1); Sodium 131 mmol/L (136-145)
[2024-07-02] MEDS ORDERED: Bacitracin 1 PK ONE (23:20)
== END 2024-07-02 23:52 | disposition home or self-care (01) ==
LOC: CSHERS 18:50
DX: L03.116 Cellulitis of left lower limb (principal); E11.9 Type 2 diabetes mellitus without complications; I10 Essential (primary) hypertension; E78.5 Hyperlipidemia, unspecified; Z79.899 Other long term (current) drug therapy; Z79.84 Long term (current) use of oral hypoglycemic drugs; Z79.01 Long term (current) use of anticoagulants; Z79.4 Long term (current) use of insulin; Z79.82 Long term (current) use of aspirin; M79.605 Pain in left leg
CPT/HCPCS: 80048; 83605; 85025; 87040; 93971; 96374; 99284; J2543

== ENCOUNTER 2024-07-06 18:24 | Inpatient (IN) | payer MEDICARE ==
[2024-07-06 21:12] LABS: #Basophils Less than 0.03 10x3/uL (0.0-0.2); #Eosinophils 0.09 10x3/uL (0.0-0.5); #Monocytes 0.71 10x3/uL (0.0-1.1); #Neutrophils 9.92 10x3/uL (1.5-8.4); %Basophils 0.2 % (0.0-2.0); %Eosinophils 0.8 % (0.0-6.0); %Lymphocytes 5.6 % (18.0-47.0); %Monocytes 6.2 % (0.0-10.0); Hematocrit 31.8 % (38.8-50.0); Hemoglobin 10.1 g/dL (13.5-17.5); Mean Corpuscular HGB CONC 31.8 g/dL (32.0-36.0); Mean Corpuscular Hemoglobin 29.8 pg (27.0-33.0); Mean Corpuscular Volume 93.8 fL (81.2-95.1); Mean Platelet Volume 11.4 fL (7.4-10.4); Platelet Count 197 10x3/uL (150-450); RBC Distribution Width 15.7 % (11.5-14.5); Red Blood Cell (RBC) Count 3.39 10x6/uL (4.32-5.72); White Blood Cell (WBC) Count 11.52 10x3/uL (3.5-10.5)
[2024-07-06 21:22] LABS: Anion Gap 16 mmol/L (10-20); BUN (Urea Nitrogen) 39 mg/dL (8.4-25.7); Calc. Creatinine Clearance 0 mL/min (70-130); Calcium 9.8 mg/dL (7.8-10.44); Carbon Dioxide 22 mmol/L (23-31); Chloride 98 mmol/L (98-107); Estimated GFR 60; Glucose 155 mg/dL (83-110); Sodium 131 mmol/L (136-145)
[2024-07-06] MEDS ORDERED: Dextrose 50% Abboject 50 ML SYRINGE SLOW IVP PRN (23:01)
[2024-07-06] MEDS ORDERED: Calcium Carbonate 500 MG ChewTAB PO PRN (23:01)
[2024-07-06] MEDS ORDERED: Dextrose 5% in Water 1,000 ML IV PRN (23:01)
[2024-07-06] MEDS ORDERED: Ondansetron PF 4 MG/2 ML Vial IVP PRN (23:01)
[2024-07-06] MEDS ORDERED: Glucagon 1 MG/ML KIT IM PRN (23:01)
[2024-07-06] MEDS ORDERED: Cefepime 1 GM VIAL ONE (23:24)
[2024-07-07 00:39] VITALS: BMI 41.8
[2024-07-07] MEDS: Amiodarone 200 MG TAB PO SCH ×2 (01:36→09:22)
[2024-07-07] MEDS: Apixaban 5 MG TAB PO SCH ×2 (01:36→09:22)
[2024-07-07] MEDS: traMADol HCl 50 MG TAB PO PRN (01:36)
[2024-07-07] MEDS: Senokot S 8.6-50 MG TAB PO PRN (01:39)
[2024-07-07] MEDS: VANCOMYCIN 2 GRAM/400 ML BAG 2 GM in Premix 1 BAG IVPB SCH (03:19)
[2024-07-07 04:06] LABS: #Basophils 0.03 10x3/uL (0.0-0.2); #Eosinophils 0.09 10x3/uL (0.0-0.5); #Monocytes 0.63 10x3/uL (0.0-1.1); #Neutrophils 7.74 10x3/uL (1.5-8.4); %Basophils 0.3 % (0.0-2.0); %Lymphocytes 6.9 % (18.0-47.0); %Monocytes 6.8 % (0.0-10.0); Hematocrit 26.8 % (38.8-50.0); Hemoglobin 8.6 g/dL (13.5-17.5); Mean Corpuscular HGB CONC 32.1 g/dL (32.0-36.0); Mean Corpuscular Hemoglobin 29.8 pg (27.0-33.0); Mean Corpuscular Volume 92.7 fL (81.2-95.1); Mean Platelet Volume 10.5 fL (7.4-10.4); Platelet Count 159 10x3/uL (150-450); RBC Distribution Width 15.5 % (11.5-14.5); Red Blood Cell (RBC) Count 2.89 10x6/uL (4.32-5.72); White Blood Cell (WBC) Count 9.22 10x3/uL (3.5-10.5)
[2024-07-07 04:22] LABS: Anion Gap 16 mmol/L (10-20); BUN (Urea Nitrogen) 35 mg/dL (8.4-25.7); Calc. Creatinine Clearance 115 mL/min (70-130); Calcium 8.9 mg/dL (7.8-10.44); Carbon Dioxide 20 mmol/L (23-31); Chloride 101 mmol/L (98-107); Estimated GFR 65; Glucose 199 mg/dL (83-110); Potassium 4.6 mmol/L (3.5-5.1); Sodium 132 mmol/L (136-145)
[2024-07-07 04:25] LABS: Vancomycin, Random 19.1 ug/mL (See Comment)
[2024-07-07] MEDS: Lantus 1000 UNITS/10 ML VIAL SC SCH (09:21)
[2024-07-07] MEDS: Aspirin 81 mg Enteric Coated Tablet PO SCH (09:22)
[2024-07-07] MEDS: Furosemide 40 MG TAB PO SCH (09:22)
[2024-07-07] MEDS: Tamsulosin HCl 0.4 MG CAP PO SCH (09:22)
[2024-07-07] MEDS: Cyanocobalamin (Vitamin B-12) 1,000 MCG TAB PO SCH (09:22)
[2024-07-07] MEDS: Spironolactone 25 MG TAB PO SCH (09:22)
[2024-07-07] MEDS: Carvedilol 6.25 MG TAB PO SCH (09:22)
[2024-07-07] MEDS: Pantoprazole 40 MG DR.TAB PO SCH (09:22)
[2024-07-07] MEDS: Multivitamin W/ Minerals 1 TAB PO SCH (09:23)
[2024-07-07] MEDS: Ferrous Sulfate 325 MG TAB PO SCH (09:23)
[2024-07-07] MEDS: Empagliflozin 25 MG TAB PO SCH (09:23)
[2024-07-07] MEDS: Saccharomyces boulardii 250 MG CAP PO SCH (09:23)
[2024-07-07] MEDS: Vancomycin HCl 750 MG in Sodium Chloride 0.9% 250 ML 250 ML IVPB SCH (09:28)
[2024-07-07] MEDS: Clotrimazole 1% Cream 15 GM TUBE TOP SCH (09:39)
[2024-07-07] MEDS: Timolol 0.5% Ophth Soln 5 ml Bottle EA EYE SCH (09:40)
[2024-07-07] MEDS: Cefepime 2 GM in Sodium Chloride 0.9% 100 ML IVPB SCH (11:23)
[2024-07-07] MEDS: Insulin Lispro 100 UNIT/ML 10 ML VIAL SC PRN (12:21)
[2024-07-07] MEDS: Magnesium Oxide 250 MG TAB PO SCH (20:50)
[2024-07-07] MEDS: Atorvastatin Calcium 40 MG TAB PO SCH (20:51)
[2024-07-07] MEDS: Latanoprost 0.005% Ophth Soln 2.5 ml Bottle EA EYE SCH (20:53)
[2024-07-07] MEDS ORDERED: VANCOMYCIN 2 GRAM/400 ML BAG 2 GM in Premix 1 BAG IVPB SCH (21:00)
[2024-07-08] MEDS: Non-Formulary Medication 1 EACH (Glucosamine Hcl [Glucosamine Hcl] 1,500 MG Tablet) PO SCH (00:01)
[2024-07-08 04:17] LABS: #Basophils Less than 0.03 10x3/uL (0.0-0.2); #Eosinophils 0.11 10x3/uL (0.0-0.5); #Monocytes 0.52 10x3/uL (0.0-1.1); #Neutrophils 7.56 10x3/uL (1.5-8.4); %Basophils 0.2 % (0.0-2.0); %Eosinophils 1.3 % (0.0-6.0); %Lymphocytes 5.5 % (18.0-47.0); %Monocytes 5.9 % (0.0-10.0); %Neutrophils 85.8 % (40.0-75.0); Hemoglobin 8.7 g/dL (13.5-17.5); Mean Corpuscular HGB CONC 33.5 g/dL (32.0-36.0); Mean Corpuscular Hemoglobin 30.6 pg (27.0-33.0); Mean Corpuscular Volume 91.5 fL (81.2-95.1); Mean Platelet Volume 10.7 fL (7.4-10.4); Platelet Count 158 10x3/uL (150-450); RBC Distribution Width 15.6 % (11.5-14.5); Red Blood Cell (RBC) Count 2.84 10x6/uL (4.32-5.72)
[2024-07-08 04:37] LABS: Vancomycin, Random 18.2 ug/mL (See Comment)
[2024-07-08 04:39] LABS: Anion Gap 15 mmol/L (10-20); BUN (Urea Nitrogen) 33 mg/dL (8.4-25.7); Calc. Creatinine Clearance 109 mL/min (70-130); Carbon Dioxide 20 mmol/L (23-31); Chloride 101 mmol/L (98-107); Estimated GFR 61; Glucose 161 mg/dL (83-110); Potassium 4.2 mmol/L (3.5-5.1); Sodium 132 mmol/L (136-145)
[2024-07-08 21:57] VITALS: BMI 41.8
[2024-07-09] MEDS: Acetaminophen 325 MG TAB PO PRN (00:19)
[2024-07-09 04:06] LABS: #Basophils Less than 0.03 10x3/uL (0.0-0.2); #Eosinophils 0.08 10x3/uL (0.0-0.5); #Monocytes 0.59 10x3/uL (0.0-1.1); #Neutrophils 8.91 10x3/uL (1.5-8.4); %Basophils 0.1 % (0.0-2.0); %Eosinophils 0.8 % (0.0-6.0); %Lymphocytes 4.3 % (18.0-47.0); %Monocytes 5.8 % (0.0-10.0); Hematocrit 26.1 % (38.8-50.0); Hemoglobin 8.4 g/dL (13.5-17.5); Mean Corpuscular HGB CONC 32.2 g/dL (32.0-36.0); Mean Corpuscular Hemoglobin 29.7 pg (27.0-33.0); Mean Corpuscular Volume 92.2 fL (81.2-95.1); Mean Platelet Volume 11.2 fL (7.4-10.4); Platelet Count 167 10x3/uL (150-450); RBC Distribution Width 15.5 % (11.5-14.5); Red Blood Cell (RBC) Count 2.83 10x6/uL (4.32-5.72); White Blood Cell (WBC) Count 10.13 10x3/uL (3.5-10.5)
[2024-07-09 04:27] LABS: Anion Gap 14 mmol/L (10-20); BUN (Urea Nitrogen) 32 mg/dL (8.4-25.7); Calc. Creatinine Clearance 108 mL/min (70-130); Calcium 8.7 mg/dL (7.8-10.44); Carbon Dioxide 21 mmol/L (23-31); Chloride 101 mmol/L (98-107); Estimated GFR 60; Glucose 223 mg/dL (83-110); Potassium 4.1 mmol/L (3.5-5.1); Sodium 132 mmol/L (136-145); Vancomycin, Random 19.3 ug/mL (See Comment)
[2024-07-09 21:14] VITALS: BP 123/44; TEMP 97.5
== END 2024-07-09 22:00 | disposition short-term general hospital (02) | DRG 603 ==
LOC: CSHERS 18:24 → CSHTELE 23:01 → OBSVTOIN 23:01
PROVIDERS: ADMIT Student in an Organized Health Care Education/Training Program; ATTEND Family Medicine
PROC: 5A09357 Assistance with Respiratory Ventilation, Less than 24 Consecutive Hours, Continuous Positive Airway Pressure (ICD-10-PCS; principal; 2024-07-07)
DX: L03.116 Cellulitis of left lower limb (principal); E87.20 Acidosis, unspecified; I13.0 Hypertensive heart and chronic kidney disease with heart failure and stage 1 through stage 4 chronic kidney disease, or unspecified chronic kidney disease; I50.42 Chronic combined systolic (congestive) and diastolic (congestive) heart failure; E87.1 Hypo-osmolality and hyponatremia; I25.10 Atherosclerotic heart disease of native coronary artery without angina pectoris; N18.2 Chronic kidney disease, stage 2 (mild); I48.0 Paroxysmal atrial fibrillation; L89.629 Pressure ulcer of left heel, unspecified stage; E11.621 Type 2 diabetes mellitus with foot ulcer; E78.5 Hyperlipidemia, unspecified; D63.1 Anemia in chronic kidney disease; G47.33 Obstructive sleep apnea (adult) (pediatric); Z95.1 Presence of aortocoronary bypass graft; Z85.820 Personal history of malignant melanoma of skin; Z86.79 Personal history of other diseases of the circulatory system; Z78.9 Other specified health status; Z83.6 Family history of other diseases of the respiratory system; Z82.49 Family history of ischemic heart disease and other diseases of the circulatory system; Z95.810 Presence of automatic (implantable) cardiac defibrillator; Z79.85 Long-term (current) use of injectable non-insulin antidiabetic drugs; Z79.82 Long term (current) use of aspirin
CPT/HCPCS: 36415; 36416; 75635; 80048; 80202; 83605; 84145; 85025; 86140; 87040; 87081; 93923; 94760; 94762; 96365; 96366; 96375; J0692; J1815; J3370; J7050; Q9967

== ENCOUNTER 2024-08-06 00:44 | Emergency (ER) | payer MEDICARE ==
[2024-08-06 01:39] LABS: #Basophils Less than 0.03 10x3/uL (0.0-0.2); #Monocytes 1.03 10x3/uL (0.0-1.1); #Neutrophils 7.43 10x3/uL (1.5-8.4); %Basophils 0.2 % (0.0-2.0); %Eosinophils 1.1 % (0.0-6.0); %Lymphocytes 7.7 % (18.0-47.0); %Monocytes 10.9 % (0.0-10.0); %Neutrophils 78.5 % (40.0-75.0); Hemoglobin 8.6 g/dL (13.5-17.5); Mean Corpuscular HGB CONC 30.7 g/dL (32.0-36.0); Mean Corpuscular Hemoglobin 29.6 pg (27.0-33.0); Mean Corpuscular Volume 96.2 fL (81.2-95.1); Platelet Count 157 10x3/uL (150-450); RBC Distribution Width 17.2 % (11.5-14.5); Red Blood Cell (RBC) Count 2.91 10x6/uL (4.32-5.72); White Blood Cell (WBC) Count 9.46 10x3/uL (3.5-10.5)
[2024-08-06 01:56] LABS: Anion Gap 22 mmol/L (10-20); BUN (Urea Nitrogen) 30 mg/dL (8.4-25.7); Calc. Creatinine Clearance 0 mL/min (70-130); Calcium 8.7 mg/dL (7.8-10.44); Carbon Dioxide 22 mmol/L (23-31); Chloride 98 mmol/L (98-107); Estimated GFR 60; Glucose 153 mg/dL (83-110); Sodium 137 mmol/L (136-145)
[2024-08-06 02:03] LABS: Troponin I 0.017 ng/mL (< 0.028)
[2024-08-06] MEDS ORDERED: Acetaminophen 500 MG TAB ONE (02:35)
[2024-08-06 04:30] LABS: Troponin I 0.013 ng/mL (< 0.028)
== END 2024-08-06 04:51 | disposition home or self-care (01) ==
LOC: CSHERS 00:44
DX: M54.6 Pain in thoracic spine (principal); I11.0 Hypertensive heart disease with heart failure; E11.22 Type 2 diabetes mellitus with diabetic chronic kidney disease; I50.9 Heart failure, unspecified; E78.5 Hyperlipidemia, unspecified; I25.2 Old myocardial infarction; Z79.899 Other long term (current) drug therapy; Z79.82 Long term (current) use of aspirin; Z79.01 Long term (current) use of anticoagulants; Z79.4 Long term (current) use of insulin
CPT/HCPCS: 36415; 71045; 80048; 83880; 84484; 85025; 93005

== ENCOUNTER 2025-03-30 19:21 | Emergency (ER) | payer MEDICARE ==
[2025-03-30 21:12] LABS: Glucose, Urine (Dipstick) >=1000 mg/dL (Negative); Leukocyte 25 (Negative); Protein, Urine (Dipstick) 100 mg/dl (Neg-Trace); Specific Gravity, Urine 1.020 (1.005-1.030)
[2025-03-30 21:14] LABS: RBC/HPF Greater than 50 HPF (0-3)
[2025-03-30 21:15] LABS: Bacteria/HPF 3+ HPF (None Seen); CAUTI Indications for Culture Dysuria,urgency,freq; Urine Culture Reflex No No
[2025-03-30] MEDS ORDERED: Cephalexin 250 MG CAP ONE (22:15)
== END 2025-03-30 22:37 | disposition home or self-care (01) ==
LOC: CSHERS 19:21
DX: N39.0 Urinary tract infection, site not specified (principal); I13.0 Hypertensive heart and chronic kidney disease with heart failure and stage 1 through stage 4 chronic kidney disease, or unspecified chronic kidney disease; I50.9 Heart failure, unspecified; N18.2 Chronic kidney disease, stage 2 (mild); E11.22 Type 2 diabetes mellitus with diabetic chronic kidney disease; E66.9 Obesity, unspecified; Z95.0 Presence of cardiac pacemaker; Z95.1 Presence of aortocoronary bypass graft
CPT/HCPCS: 81001; 87077; 87086; 99283